=== PATIENT | female | born 1965 | race Caucasian/White ===

== ENCOUNTER 2018-04-03 12:51 | Emergency (ER) | payer SELFPAY ==
[~2018-04-03] VITALS: Ht 162.6 cm; Wt 68.0 kg
--- NOTE | 2018-04-03 13:09 | NUR ---
is at patient's bedside doing the MSE.
--- NOTE | 2018-04-03 14:14 | NUR ---
Patient discharged to home in stable conditon & brisk steady gait. Written and verbal after care instructions given to patient by MD himself. Patient verbalizes understanding of instructions.
== END 2018-04-03 14:15 | disposition home or self-care (01) ==
LOC: ER 12:51
DX: S02.92XA Unspecified fracture of facial bones, initial encounter for closed fracture (principal); S06.0X0A Concussion without loss of consciousness, initial encounter; W01.198A Fall on same level from slipping, tripping and stumbling with subsequent striking against other object, initial encounter; Y93.89 Activity, other specified; Y92.89 Other specified places as the place of occurrence of the external cause; Y99.8 Other external cause status
CPT/HCPCS: 70450; 70486; 72125; 99284; A4663